=== PATIENT | male | born 1975 | race Caucasian/White ===

== ENCOUNTER 2019-10-29 09:26 | Emergency (ER) | payer BC, OTHER, SELFPAY ==
[2019-10-29 09:29] VITALS: BP 131/84; PULSE 63; RESP 20; TEMP 36.7; O2SAT 99
--- NOTE | 2019-10-29 09:59 | ED.GENADULT ---
HPI - General Adult General Chief complaint: Extremity Injury, Lower Stated complaint: l foot pain Time Seen by Provider: 10/29/19 09:59 Source: patient and RN notes reviewed Limitations: no limitations History of Present Illness HPI narrative: 44-year-old male presents today with complaints of LT eggzzpk-qpoewg-yxlwlip foot tenderness for 1 day. Ibuprofen without relief. Symptoms increased today. No known injuries. Hurts to bear weight. No radiation of pain. No numbness, tingling, or loss of mobility. Exacerbating factor applying weight. Denies inability to bear weight (feels better to ambulate on heel of LT foot). Denies discoloration. Denies suspect foreign body. Denies fever or chills. Remains active with crutches since yesterday Some parts of this dictation were generated by voice recognition software and may contain typographical and/or grammatical inaccuracies. Related Data Allergies Allergy/AdvReac Type Severity Reaction Status Date / Time No Known Allergies Allergy Verified 10/29/19 09:37 Review of Systems Review of Systems: Narrative: CONSTITUTIONAL: Denies fever, chills, sweats. EYES: Denies visual changes, redness, discharge. ENT: Denies rhinorrhea, congestion, sore throat, otalgia. CARDIOVASCULAR: Denies chest pain, palpitations, edema. RESPIRATORY: Denies dyspnea, wheezing, cough. GASTROINTESTINAL: Denies abdominal pain, nausea, vomiting, diarrhea. GENITOURINARY: Denies dysuria, hematuria, abnormal discharge. SKIN: Denies rash or itching. MUSCULOSKELETAL: Denies acute back pain or myalgia. Complains of LT lgcwzgn-freweq-igvlrbh foot tenderness. NEUROLOGIC: Denies numbness or focal weakness. PSYCHIATRIC: Denies anxiety or depression. [facility] Past Medical History Medical History ADHD Hypertension Insomnia Lesion of ulnar nerve, bilateral Surgical History Surgical History History of carpal tunnel surgery History of left knee surgery History of testicular surgery Family History Family History Sibling Diabetes mellitus Hypertension Mother Hypertension Colon polyp Father Acute myocardial infarction Family history of thoracic aortic aneurysm Social History Social History Smoking status: Never smoker Second hand tobacco smoke exposure: No Alcohol intake: current Substance use: never Substance use type: does not use Gender identity (if verbalized by the patient): Male Comments At time of signature, agree with nurse past medical, surgical, social, and family history. There is no relevant family history pertinent to the presenting complaint. Exam Narrative: Exam Narrative: GENERAL: This is a well-nourished, well-developed patient, in no apparent distress. Ambulates with a limp favoring left lower extremity. HEAD: normocephalic, atraumatic. EYES: PERRL. Sclera clear/white. Vision is grossly intact. CARDIOVASCULAR: Regular rate and rhythm without murmurs, gallops, or rubs. RESPIRATORY: Clear to auscultation. Breath sounds equal bilaterally. No wheezes, rales, or rhonchi. GASTROINTESTINAL: Abdomen soft, non-tender, nondistended. Bowel sounds are active. No hepato-splenomegaly, or palpable masses. No guarding. SKIN: warm, intact with no suspicious lesions or rash, good texture and turgor. NEURO: awake, alert, and oriented to person, place and time. There were no obvious focal neurologic abnormalities. EXTREMITIES: No clubbing, cyanosis, or edema. LT ldlsxzg-fqbpht-hjpjtjl foot with mild-moderate tenderness on palpation. Skin intact. No welling, no erythema, or ecchymosis, to LT foot including toes, normal CAP refill, sensation of distal toe, 2 point discrimination, movement of toe at PIP and MTP. No streaking. Ankle and foot: Aligned. Normal DP pul
== END 2019-10-29 10:24 | disposition home or self-care (01) ==
PROVIDERS: Emergency Provider Nurse Practitioner Family; PCP Family Medicine
DX: M72.2 Plantar fascial fibromatosis (principal); I10 Essential (primary) hypertension; G47.00 Insomnia, unspecified
CPT/HCPCS: 99211; G0463

== ENCOUNTER 2020-11-14 09:59 | Emergency (ER) | payer BC, SELFPAY ==
[2020-11-14 10:03] VITALS: BP 141/85; PULSE 66; RESP 16; TEMP 36.6; O2SAT 100
--- NOTE | 2020-11-14 10:03 | ED.GENADULT ---
HPI - General Adult General Chief complaint: Upper Respiratory Infection Stated complaint: back pain/sinus issues Time Seen by Provider: 11/14/20 10:04 Source: patient Mode of arrival: ambulatory Limitations: no limitations History of Present Illness HPI narrative: 45-year-old male patient presents to the [facility] with complaints of sinus issues for the last 2 days. Patient states he has been taken ozxa-dvs-zcnzlbl Claritin and start taking Mucinex for today with some Flonase. Patient denies any fevers, body aches or chills. Denies any chest pain, shortness of breath. Patient states that he has had some intermittent pain to the right ear that kind of comes and goes. Patient also complaining of bilateral flank pain that started this morning when he woke up. Denies any pain with urination but states at times he does have difficulty starting his stream. Patient denies any lower abdominal pain. Patient denies taking anything for the back pain today. Patient states he does have history of high blood pressure and supposed to be on blood pressure medications but has been off of them for the last couple of months because he does not feel like taking his medication. Related Data Allergies Allergy/AdvReac Type Severity Reaction Status Date / Time No Known Allergies Allergy Verified 11/14/20 10:12 Review of Systems Review of Systems: Narrative: CONSTITUTIONAL: Denies fever, chills, or sweats. EYES: Denies visual changes, redness, or discharge. ENT: Positive rhinorrhea, congestion, intermittent sore throat, positive right otalgia. CARDIOVASCULAR: Denies chest pain, palpitations, or edema. RESPIRATORY: Denies cough or dyspnea. GASTROINTESTINAL: Denies abdominal pain, nausea, vomiting, or diarrhea. GENITOURINARY: Denies dysuria or hematuria. SKIN: Denies rash or itching. MUSCULOSKELETAL: Positive low back pain, denies joint pain, or myalgia. NEUROLOGIC: Denies headache, numbness, or weakness. PSYCHIATRIC: Denies anxiety or depression. [facility] Past Medical History Medical History (Updated 11/14/20 @ 10:33 by JENNA Evans) ADHD Hypertension Insomnia Lesion of ulnar nerve, bilateral Surgical History Surgical History History of carpal tunnel surgery History of left knee surgery History of testicular surgery Family History Family History Sibling Diabetes mellitus Hypertension Mother Hypertension Colon polyp Father Acute myocardial infarction Family history of thoracic aortic aneurysm Social History Social History Smoking status: Never smoker Second hand tobacco smoke exposure: No Alcohol intake: current Substance use: never Substance use type: does not use Gender identity (if verbalized by the patient): Male Comments At the time of my signature I agree with nursing past medical history, surgical, social, and family history. There is no relevant family history pertinent to the presenting complaint. Exam Narrative: Exam Narrative: GENERAL: Well-appearing, well-nourished, and in no acute distress. HEAD: Normocephalic, atraumatic. Tenderness noted to frontal maxillary sinuses on palpation EYES: PERRLA and EOMI. ENT: Nares with erythema and edema noted bilaterally, no rhinorrhea or epistaxis. Mucous membranes moist. Posterior pharynx with slight postnasal drip present. The left ear does have some cerebrum to the canal but is nonobstructing and I am able to see the TM which does not appear to have any erythema. The right ear is unable to be assessed due to cerumen impaction. NECK: Supple. No lymphadenopathy CHEST: Clear to auscultation. No respiratory distress. Patient able talk in clear complete sentences. HEART: Regular rate and rhythm. No murmur heard. Normal peripheral pulses. ABDOMEN: Soft, nontender, nondistended, normal active bowel
[2020-11-14 10:12] VITALS: BP 141/85; PULSE 66; RESP 16; TEMP 36.6; O2SAT 100
== END 2020-11-14 10:36 | disposition home or self-care (01) ==
PROVIDERS: Emergency Provider Nurse Practitioner Family
DX: J30.9 Allergic rhinitis, unspecified (principal); H60.501 Unspecified acute noninfective otitis externa, right ear; H61.21 Impacted cerumen, right ear; M54.5 Low back pain; F90.9 Attention-deficit hyperactivity disorder, unspecified type; I10 Essential (primary) hypertension
CPT/HCPCS: 69209; 81003; 99213; A9270; G0463

== ENCOUNTER → 2021-06-06 10:30 | Outpatient (CLI) | payer BC, SELFPAY ==
--- NOTE | ~2021-06-06 | CT_ITS ---
EXAMINATION: CT abdomen wo con DATE: 06/06/2021 10:45 INDICATION: Diastases of the rectus abdominis muscles TECHNIQUE: Computed tomography (CT) of the abdomen was performed without intravenous contrast. The do se-length product (DLP) was 760.32 mGy-cm. Automated exposure control and iterative reconstruction te chnique were employed. COMPARISON: 04/23/2012 FINDINGS: The lung bases are clear. The heart size is normal. There is a small sliding hiatal hernia. The gallbladder is absent. The liver, spleen, pancreas, and adrenal glands are normal. The kidneys a re unremarkable. There are no pathologically enlarged abdominal lymph nodes. The appendix is normal. There are no dilated loops of bowel. There is mild diastases of the rectus abdominal muscles. Overall appearance is not significantly changed since the comparison CT. IMPRESSION: 1. Mild diastases of the rectus abdominis muscles without significant interval change. Reviewed, dictated and finalized at location B. UAGE INSTRUCTOR
== END ==
PROVIDERS: Visit Provider Surgery
DX: M62.08 Separation of muscle (nontraumatic), other site (principal)
CPT/HCPCS: 74150

== ENCOUNTER 2022-12-26 15:12 | Emergency (ER) | payer BC, OTHER, SELFPAY ==
--- NOTE | ~2022-12-26 | XR_ITS ---
EXAMINATION: XR chest 2V Exam Date/Time: 12/26/2022 15:45 CDT HISTORY: left lateral posterior mid thoracic pain no injury Comparison: CT abdomen 06/06/2021. RESULT: Lines, tubes, and devices: None. Lungs and pleura: Clear. Cardiomediastinal silhouette: Normal. Prominent pericardial fat pad. Other: No acute osseous or upper abdominal finding. IMPRESSION: No acute cardiopulmonary process. Reviewed, dictated and finalized at location K.
[2022-12-26 15:21] VITALS: BP 147/83; PULSE 80; RESP 16; TEMP 36.6; O2SAT 100
--- NOTE | 2022-12-26 15:34 | ED.BACK ---
HPI - Back Pain/Injury General Chief Complaint: Back Pain/Injury Stated Complaint: BACK PAIN Time Seen by Provider: 12/26/22 15:34 Source: patient Mode of arrival: ambulatory Limitations: no limitations History of Present Illness HPI Narrative: 47 year old who presents to [facility] care with complaints of left lateral mid back pain for the past 10 days without injury which is constant. Patient reports that pain is sharp with certain movements, when he lyes flat and turns in bed and when he coughs. Patient reports that he does not feel short of breath but pain is sharp at times, it takes his breath away. Patient has full ROM of back and upper extremities, denies any radiation of pain, denies any chest pain, feelings of numbness, or weakness., no redness brusing or deformity noted to left later mid back region. Patient reports that he has been taking Ibuprofen with no pain relief MD elicited complaint: back pain Onset (ago): day(s) (10) Pain scale (0-10): 5 Treatments prior to arrival: NSAIDS Related Data Allergies Allergy/AdvReac Type Severity Reaction Status Date / Time No Known Allergies Allergy Verified 12/26/22 15:31 Review of Systems Review of Systems: CONSTITUTIONAL: Denies fever, chills, or sweats. CARDIOVASCULAR: Denies chest pain, palpitations, or edema. RESPIRATORY: Denies cough or dyspnea. GASTROINTESTINAL: Denies abdominal pain, nausea, vomiting, or diarrhea. GENITOURINARY: Denies dysuria or hematuria. SKIN: Denies rash or itching. MUSCULOSKELETAL: Reports left lateral mid back pain. no other joint pain or myalgia. NEUROLOGIC: Denies headache, numbness, or weakness. All systems reviewed & are unremarkable except as noted in HPI and below PMFSH Past Medical History Medical History Abdominal pain ADHD Gallbladder sludge Hypertension Insomnia Insomnia due to medical condition Lesion of ulnar nerve, bilateral Ulnar nerve damage Ventral hernia without obstruction or gangrene Surgical History Surgical History History of arthroscopic knee surgery (~1993) History of carpal tunnel surgery History of left knee surgery History of testicular surgery (~1988) S/P nerve repair (~2010) Bilateral ulnar nerve Family History Family History Sibling Diabetes mellitus Hypertension Mother Hypertension Colon polyp Father Acute myocardial infarction Family history of thoracic aortic aneurysm Social History Social History Smoking status: Never smoker Second hand tobacco smoke exposure: No Alcohol intake: current Alcohol use details: Socially. Substance use: never Substance use type: does not use Lack of Transportation: No Lack of Food: Never True Current Housing: I Have Housing Concerned About Future Housing: No Difficulty Paying Gas/Electric Bills: No Difficulty Paying for Meds: No Currently Unemployed: No Education: Trade/Vocational Certificate Difficulty w/ Childcare or Family Care: No Living arrangements: with family Occupation/Education: occupation Gender identity (if verbalized by the patient): Male Comments At time of signature, agree with nursing past medical, surgical, social and family history. There is no relevant family history pertinent to the presenting complaint Exam Narrative: GENERAL: Well-appearing, well-nourished, and in no acute distress. HEAD: Normocephalic, atraumatic. EYES: PERRLA and EOMI. NECK: Supple. No lymphadenopathy. CHEST: Clear to auscultation. No respiratory distress. SAO2 100% on room air HEART: Regular rate and rhythm. Distal pulses palpable and equal, cap refill <3 seconds ABDOMEN: Soft, nontender, nondistended, normal active bowel sounds, no palpable or pulsatile masses. No CVA tenderness MUSCUL
== END 2022-12-26 16:15 | disposition home or self-care (01) ==
PROVIDERS: Emergency Provider Registered Nurse; PCP Family Medicine
DX: M54.6 Pain in thoracic spine (principal); I10 Essential (primary) hypertension
CPT/HCPCS: 71046; 81003; 99213; G0463

== ENCOUNTER 2023-01-04 08:29 | Outpatient (CLI) | payer BC, OTHER, SELFPAY ==
--- NOTE | ~2023-01-04 | XR_ITS ---
EXAMINATION: XR thoracic spine 3V DATE: 01/04/2023 08:52 INDICATION: Mid back pain. TECHNIQUE: 3 views of thoracic spine on 4 radiographs were obtained. COMPARISON: None. FINDINGS: Bone alignment is normal. Vertebral body heights and intervertebral disc heights are normal . There are endplate osteophytes at multiple levels. There is multilevel mild facet joint osteoarthri tis. Surgical clips in the right upper quadrant are likely from cholecystectomy. IMPRESSION: 1. Mild thoracic spondylosis. Reviewed, dictated and finalized at location A.
--- NOTE | ~2023-01-04 | XR_ITS ---
EXAMINATION: XR lumbar spine min 4V DATE: 01/04/2023 08:52 INDICATION: Low back pain. TECHNIQUE: 5 views of lumbar spine were obtained. COMPARISON: CT abdomen 06/06/2021 FINDINGS: There is 5 degrees levocurvature of lumbar spine. Vertebral body heights are normal. Interv ertebral disc heights are normal. There are endplate osteophytes at multiple levels. There is multile erendira mild facet joint osteoarthritis. There is severe bilateral facet joint osteoarthritis at L5-S1. S urgical clips in the right upper quadrant are likely from cholecystectomy. IMPRESSION: 1. Mild lumbar spondylosis. Reviewed, dictated and finalized at location A. IMPRESSION: 1. Mild lumbar spondylosis.
== END 2023-01-04 08:30 ==
PROVIDERS: PCP Family Medicine; Visit Provider Physician Assistant
DX: M47.894 Other spondylosis, thoracic region (principal); M47.896 Other spondylosis, lumbar region
CPT/HCPCS: 72072; 72110

== ENCOUNTER 2025-01-01 00:23 | Day surgery (SDC) | payer BC, OTHER, SELFPAY ==
[2024-12-28 10:45] VITALS: BMI 39.9
--- OUTSIDE RECORDS SUMMARY | 2025-01-01 00:40 | XMS_ITS | Clinical Summary ---
Author Organization [facility] Address [address] [place] [address] Care Team Providers Care Cut Order Hand Name Role Phone Unavailable Primary Care Provider Unavailabl e Source Comments [facility],non-owned Affiliates and Associated Physician Practices is amultiple site organization consisting of ambulatory clinics and hospital sitesin [place], [place], [place] and [place]. This disclosure is being madepursuant to the Care Everywhere program and may not contain all information available regarding this patient. Last updated 18.[facility] Allergies No known active allergies Medications * Be aware that medications may not be up to date on this document. Alwaysverify current medications with the patient. 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 Gender Identity Not on file Sexual Orientation Not on file Last Filed Vital Signs Vital Sign Reading Time Taken Comments Blood Pressure 128/82 02/17/2020 3:34 PM CDT Pulse 78 02/17/2020 3:34 PM CDT Temperature 36.7 C (98 F) 02/17/2020 3:34 PM CDT Respiratory Rate 16 02/17/2020 3:34 PM CDT Oxygen Saturation 98% 02/17/2020 3:34 PM CDT Inhaled Oxygen Concentration - - Weight 113.4 kg (250 lb) 02/17/2020 3:34 PM CDT Height 175.3 cm (5' 9) 02/17/2020 3:34 PM CDT Body Mass Index 36.92 02/17/2020 3:34 PM CDT Plan of Treatment Health Maintenance Due Date Last Done Comments COLOGUARD (AGES 45-75) - COL ON CA SCREENING 1975 COLON MONITORING 1975 COLONOSCOPY - COLON CA SCREENING 1975 CT COLONOGRAPHY - COLON CA SCREENING 1975 Colorectal Cancer Screening 1975 FIT - COLON CA SCREENING 1975 FLEX SIG - COLON CA SCREENING 1975 LIPID TESTING 1975 HIV SCREENING 1990 HEPATITIS C SCREENING 06/21/1993 DTAP/TDAP/TD VACCINES (1 - Tdap) 1994 HEPATITIS B VACCINE (1 of 3 - 19+ 3-dose series) 1994 SCREENING FOR DIABETES 02/17/2020 COVID-19 VACCINE (1 - 2023-2 5 season) 2024 DEPRESSION SCREENING 07/29/2024 INFLUENZA VACCINE (Season Ended) 2025 ZOSTER VACCINE (1 of 2) 2025 HIB VACCINE Aged Out No longer eligi ble based on patient's age to complete this topic HPV VACCINE Aged Out No longer eligi ble based on patient's age to complete this topic MENINGOCOCCAL (Group B) VACC INE SHARED DECISION-MAKING Aged Out No longer eligibl e based on patient's age to complete this topic MENINGOCOCCAL GROUPS A/C/Y/W VACCINE Aged Out No longer eligible b ased on patient's age to complete this topic Insurance [facility]
--- OUTSIDE RECORDS SUMMARY | 2025-01-01 00:40 | XMS_ITS | Continuity of Care Document ---
Author Organization [facility] Address [address] [place] [address] Phone Care Team Providers Care Sales Compensation Analyst Name Role Phone Nasir Enriquez MD Unavailable Unavailable Allergies, Adverse Reactions, Alerts Substance Reaction Status Criticality No Known Allergies Active No Inform ation Medications Medication Instructions Dosage Effective Dates (start - stop) Status Comments Adderall 5 mg tablet - Active Ambien 5 mg tablet take 1 tablet by ora l route every day at bedtime 5 MG - Active Procedures Procedure Date OFFICE/OUTPATIENT VISIT [facility] OFFICE/OUTPATIENT VISIT EST OFFICE CONSULTATION OFFICE/OUTPATIENT VISIT EST OFFICE/OUTPATIENT VISIT EST OFFICE CONSULTATION Advance Directives Directive Yes / No Effective Date File Name No Information Encounters Encounter Description Practice Location Reason(s) For Visit Diagnoses Date Provider Providers Copied on Encounter [facility], [address] [place] [address], [facility], [phone] [facility] No Information 9 Zoe Best. [address] [place] [address], [id number] . tel: [phone] OFFICE/OUTPAT IENT VISIT [facility], [address] [place] [address] 200, [place], [place], [facility], tel:[phone] [facility] Tendinitis of right quadriceps tendon 9 Zoe Best. [address] [place] [address], [id number] . tel: [phone] OFFICE/OUTPAT IENT VISIT EST [facility], [address], [address], [place] tel:[phone] [facility] Displacement of cervical intervertebr al disc without myelopathySp inal stenosis in cervical region 5 Cleo Pedraza. [address] [place] [address], [id number] . tel: [phone] OFFICE CONSULTATION [facility], [address] [place] [address], [id number], [place] tel:[phone] [facility] CERVICAL PAIN (chief complaint) B HAND PAIN / NUMBNESS (chief complaint) MRI IN ECHOES (chief complaint) PREVIOUS THERAPY - X'S 6 WEEKS (chief complaint) Cervical painDisplace ment of cervical intervertebr al disc without myelopathyRa dicular pain 5 Stephanie Yung. [address] [place] [address], [id number] . tel: [phone] OFFICE/OUTPAT IENT VISIT EST [facility], [address] [place] [address], [id number], [place] tel:[phone] [facility] Displacement of cervical intervertebr al disc without myelopathy Oct-2 5 Cleo Pedraza. [address] [place] [address], [id number] . tel: [phone] OFFICE/OUTPAT IENT VISIT EST [facility], [address] [place] [address], [id number], [place] tel:[phone] [facility] Thoracic outlet syndromeCarp al Tunnel Syndrome Oct-0 5 Aldo Muhammad. [address] [place] [address], [id number] . tel: [phone] Referring Provider: Milo Gallegos, [address] [place] [address], [id number]. tel:[phone] [facility], [address], [address], tel:[phone] [facility] Degeneration of cervical intervertebr al discSpinal stenosis in cervical region 5 Curylo Milo. [address] [place], [place], [id number] . tel: [phone] OFFICE CONSULTATION [facility], [address] [place] [address], [id number], tel:[phone] [facility] EVAL CERVICLA (chief complaint) EVAL LUMBAR (chief complaint) Cervical painDegenera tion of cervical intervertebr al discDegenera tion of lumbar or lumbosacral intervertebr al disc 5 Curylo Milo. [address] [place], [place], [id number] . tel: [phone] Referring Provider: Brandin Stauffer, [address] , [place], [address]. tel:[phone] Family History Family Member Type Diagnosis Age At Onset Daughter Problem (finding) Alive and well Sister Problem (finding) Alive and well Payers Payer name Insurance type Covered republican ID Authoriza tion(s) Blue Access PPO E2 OT [id number] Social History Type Description Quantity Date Captured Comments Alcohol Use Details Unknown Caffeine Use Details Unknown Tobacco Use Status No Information Smoking Status No Information Sex Male Chief Complaint And Reason For Visit No Information Reason For Referral Reason For Referral No Information Plan Of Treatment Date Type Action Status Referral Ordered: MRI SPI CANAL&CNTS CRV C-MATRL Appointment date/timeframe: 10/08/2014 ordered Referral Ordered: RADEX SPI LUMBOSAC COMPL W/BENDING VIEWS ordered Referral Ordered: RADEX SPI CRV COMPL W/OBLQ&FLEXION&/XTN STDS ordered History Of Present Illness Encounter Date Complaint History Of Prese nt Illness CERVICAL PAIN B HAND PAIN / NUMBNESS MRI IN ECHOES PREVIOUS THERAPY - X'S 6 WEEKS EVAL LUMBAR EVAL CERVICLA Functional Status Date Functional Assessmen t No Information Instructions Date Instruction Additional Infor elizabeth Giving encouragement to exercise Related to Body mass index (BMI) 37.0-37.9, adult Apply ice as instructed. Related to Carpal Tunnel Syndrome Activity as tolerated. Related t o Carpal Tunnel Syndrome Take medications as directed. Re lated to Carpal Tunnel Syndrome Assessments Type Assessment Date No Information Patient Care Teams Name Effective Dates (start - stop) Status Members No Information
--- OUTSIDE RECORDS SUMMARY | 2025-01-01 00:40 | XMS_ITS | Clinical Summary ---
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 Gender Identity Not on file Sexual Orientation Not on file Plan of Treatment Health Maintenance Due Date Last Done Comments Hepatitis C Virus (HCV) Screening 1975 TdaP Immunization 1975 Hepatitis B Immunization (1 of 3 - 19+ 3-dose series) 1994 Colonoscopy 2020 Colorectal Cancer Screening 2020 Influenza Immunization (#1) 2024 07/10/2012 SARS-COV-2 Immunization ( season) 2024 01/09/2021, 12/12/2020 Respiratory Syncytial Virus (RSV) Immunization (Adult) (1 - 1-dose 75+ series) 2050 Meningococcal Immunization (ACWY) Aged Out No longer eligible b ased on patient's age to complete this topic Pneumococcal Immunization Combined Aged Out No longer eligible b ased on patient's age to complete this topic Rotavirus Immunization Aged Out No lo nger eligible based on patient's age to complete this topic
[2025-01-01 10:22] VITALS: BP 149/99; PULSE 70; RESP 17; TEMP 36.8; O2SAT 100
[2025-01-01] MEDS: LACTATED RINGERS 1,000 ML 150 ML IV CONT (10:30)
--- NOTE | 2025-01-01 10:35 | WPDANESEPPF ---
Anes - Initial Pre Proc Eval Procedure: Operation Date: 01/01/25 11:30 Proposed Procedures p Screening Colonoscopy - Javi Hartman MD Date/Time: 01/01/25 10:35 Surgeon: Javi Hartman MD Pre Op Diagnosis: Screening Patient Data Age: 49 Gender: M Height: 1.75 m Weight: 122.9 kg Last Vital Signs Temp 36.8 C 01/01/25 10:22 Pulse 70 01/01/25 10:22 Resp 17 01/01/25 10:22 BP 149/99 H 01/01/25 10:22 Pulse Ox 100 01/01/25 10:22 O2 Del Method Room Air 01/01/25 10:22 Allergies Allergy/AdvReac Type Severity Reaction Status Date / Time No Known Allergies Allergy Verified 01/01/25 10:16 Home Medications ?Medication ?Instructions ?Recorded ?Confirmed ?Type cyclobenzaprine 10 mg tablet 10 mg PO TID PRN muscle spasm #90 01/22/24 01/01/25 Rx tabs lidocaine 5 % topical patch 1 patch topical DAILY #30 ea 01/22/24 12/28/24 Rx lisinopril 10 mg tablet 10 mg PO DAILY #30 tabs 05/13/24 01/01/25 Rx dextroamphetamine-amphetamine 10 10 mg PO BID #60 tabs 11/30/24 01/01/25 Rx mg tablet (Adderall) zolpidem 12.5 mg tablet,extended 12.5 mg PO .QHS PRN sleep #30 tabs 12/07/24 01/01/25 Rx release,multiphase Patient hx anesthesia problems: none Family hx anesthesia problems: none Results Review: All pre-operative results and documents have been reviewed as part of the pre-operative evaluation. 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 Gallbladder sludge Abdominal pain Ventral hernia without obstruction or gangrene Insomnia Hypertension ADHD Lesion of ulnar nerve, bilateral Surgical History Surgical History S/P nerve repair (~2010) Bilateral ulnar nerve History of arthroscopic knee surgery (~1993) History of carpal tunnel surgery History of testicular surgery (~1988) History of left knee surgery Family History Family History Sibling Diabetes mellitus Hypertension Mother Hypertension Colon polyp Father Acute myocardial infarction Family history of thoracic aortic aneurysm Social History Social History Smoking status: Never smoker Second hand tobacco smoke exposure: No Alcohol intake: current Alcohol use details: a few a month Substance use: never Substance use type: does not use Lack of Transportation: No Lack of Food: Never True Current Housing: I Have Housing Concerned About Future Housing: No Difficulty Paying Gas/Electric Bills: No Difficulty Paying for Meds: No Currently Unemployed: No Education: Trade/Vocational Certificate Difficulty w/ Childcare or Family Care: No Living arrangements: with family Occupation/Education: occupation Gender identity (if verbalized by the patient): Male Spiritual care concerns: No Anes - Eval Final PreProcedure Day of Procedure 01/01/25 10:35 Patient weight: morbidly obese Heart: regular rate and rhythm Lungs: clear to auscultation Airway: Mallampati scale class II Neurological: alert and oriented Last oral intake: >/= 8 hours ASA classification: III Emergent: no Anesthetic plan: proceed Anesthesia type and monitoring: general GIVS and standard monitoring Results Review: All pre-operative results and documents have been reviewed as part of the pre-operative evaluation. Informed Consent: The patient's anesthetic plan and its attendant risks and benefits were discussed with the patient/family/POA. Questions were solicited and answers provided to the satisfaction of the patient/family/POA.
--- NOTE | 2025-01-01 10:57 | PM.HPGS ---
History of Present Illness History of Present Illness Consent: Risks, benefits, and alternatives have been discussed and questions answered. Patient agrees to proceed with procedure. Chief complaint: Screening Narrative: Pb Lewis Jr. 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 Gallbladder sludge Abdominal pain Ventral hernia without obstruction or gangrene Insomnia Hypertension ADHD Lesion of ulnar nerve, bilateral Surgical History Surgical History S/P nerve repair (~2010) Bilateral ulnar nerve History of arthroscopic knee surgery (~1993) History of carpal tunnel surgery History of testicular surgery (~1988) History of left knee surgery Family History Family History Sibling Diabetes mellitus Hypertension Mother Hypertension Colon polyp Father Acute myocardial infarction Family history of thoracic aortic aneurysm Social History Social History Smoking status: Never smoker Second hand tobacco smoke exposure: No Alcohol intake: current Alcohol use details: a few a month Substance use: never Substance use type: does not use Lack of Transportation: No Lack of Food: Never True Current Housing: I Have Housing Concerned About Future Housing: No Difficulty Paying Gas/Electric Bills: No Difficulty Paying for Meds: No Currently Unemployed: No Education: Trade/Vocational Certificate Difficulty w/ Childcare or Family Care: No Living arrangements: with family Occupation/Education: occupation Gender identity (if verbalized by the patient): Male Spiritual care concerns: No Meds Home Medications and Allergies Home Medications ?Medication ?Instructions ?Recorded ?Confirmed ?Type cyclobenzaprine 10 mg tablet 10 mg PO TID PRN muscle spasm #90 01/22/24 01/01/25 Rx tabs lidocaine 5 % topical patch 1 patch topical DAILY #30 ea 01/22/24 12/28/24 Rx lisinopril 10 mg tablet 10 mg PO DAILY #30 tabs 05/13/24 01/01/25 Rx dextroamphetamine-amphetamine 10 10 mg PO BID #60 tabs 11/30/24 01/01/25 Rx mg tablet (Adderall) zolpidem 12.5 mg tablet,extended 12.5 mg PO .QHS PRN sleep #30 tabs 12/07/24 01/01/25 Rx release,multiphase Allergies Allergy/AdvReac Type Severity Reaction Status Date / Time No Known Allergies Allergy Verified 01/01/25 10:16 Vital Signs Vital Signs - 24 hr 01/01/25 10:22 Temperature 98.2 F Pulse Rate 70 Respiratory Rate 17 Blood Pressure 149/99 H Pulse Oximetry 100 Oxygen Delivery Room Air Exam Const: General: comfortable and no acute distress HENMT: Face/Nose/Sinus: Normal nares present Eyes: General: appearance normal, both eyes and all related structures Neck: Neck: no JVD Resp: Auscultation: clear to auscultation bilaterally Cardio: Rate: regular rate Rhythm: regular rhythm GI: Inspection: non-distended GI Palp: Yes Soft to palpation Skin: General skin exam: normal color Neuro: General: gait normal Speech: normal speech Extrem: General: normal to inspection Psych: Mental Status: mental status grossly normal Assessment and Plan Assessment and plan (1) Colon cancer screening: Code(s): Z12.11 - Encounter for screening for malignant neoplasm of colon Status: Acute Assessment and Plan: colonoscopy
[2025-01-01 11:13] VITALS: BP 152/103; PULSE 68; RESP 20; O2SAT 99
[2025-01-01 11:23] VITALS: BP 137/104; PULSE 64; RESP 19; O2SAT 99
[2025-01-01 11:33] VITALS: BP 158/101; PULSE 62; RESP 25; O2SAT 100
== END 2025-01-01 11:38 | disposition home or self-care (01) ==
PROVIDERS: PCP Family Medicine; Referring Provider Student in an Organized Health Care Education/Training Program; Visit Provider Internal Medicine Gastroenterology
PROC: 0DJD8ZZ Inspection of Lower Intestinal Tract, Via Natural or Artificial Opening Endoscopic (ICD-10-PCS; CPT 45378; principal; 2025-01-01 11:30)
DX: Z12.11 Encounter for screening for malignant neoplasm of colon (principal); E66.01 Morbid (severe) obesity due to excess calories; Z68.41 Body mass index [BMI] 40.0-44.9, adult
CPT/HCPCS: 45378; J2704; J7120